=== PATIENT | male | born 1960 | race Two or more races ===

== ENCOUNTER → 2019-12-05 14:00 | Outpatient (CLI) | payer BC | END | disposition home or self-care (01) | LOC: D.MRI 14:00 | PROVIDERS: ATTEND Orthopaedic Surgery | DX: M23.306 Other meniscus derangements, unspecified meniscus, right knee (principal) ==

== ENCOUNTER → 2019-12-08 20:14 | Outpatient (CLI) | payer BC | END | disposition home or self-care (01) | LOC: D.LABREF 20:14 | PROVIDERS: ATTEND Orthopaedic Surgery | DX: M17.11 Unilateral primary osteoarthritis, right knee (principal) ==